=== PATIENT | male | born 1985 | race Caucasian/White ===

== ENCOUNTER 2017-08-26 13:13 | Emergency (ER) | payer OTHER ==
[2017-08-26 13:27] VITALS: BMI 21.5
[2017-08-26 13:31] VITALS: RESP 18
[2017-08-26] MEDS ORDERED: Aspirin 325 mg EC Tablets PO STA (13:52)
--- NOTE | 2017-08-26 14:10 | RAD ---
PROCEDURE: CHEST RADIOGRAPH, 1 VIEW HISTORY: chest pain COMPARISON: None available. FINDINGS: LUNGS: Clear. PLEURA: No pneumothorax or pleural fluid seen. CARDIOVASCULAR: Normal. OSSEOUS STRUCTURES: No significant abnormalities. VISUALIZED UPPER ABDOMEN: Normal. OTHER FINDINGS: None. IMPRESSION: No active disease.
[2017-08-26 14:26] LABS: BASO # 0.1 K/uL (0.0-0.2); EOS # 0.3 K/uL (0.0-0.7); EOS % 4.4 % (0.0-4.0); LYMPH # 1.8 K/uL (1.0-4.3); LYMPH % 28.2 % (20.0-40.0); MEAN CELL VOLUME 82.2 fL (80.0-94.0); MEAN CORPUSCULAR HEMOGLOBIN 28.6 pg (27.0-31.0); MEAN CORPUSCULAR HGB CONC 34.8 g/dL (33.0-37.0); MEAN PLATELET VOLUME 6.6 fL (7.2-11.7); MONO # 0.5 K/uL (0.0-0.8); MONO % 7.7 % (0.0-10.0); NEUT # 3.7 K/uL (1.8-7.0); NEUT % 58.7 % (50.0-75.0); RBC 5.24 Mil/uL (4.40-5.90); RED CELL DISTRIBUTION WIDTH 13.5 % (11.5-14.5); WHITE BLOOD COUNT 6.3 K/uL (4.8-10.8)
[2017-08-26 14:39] LABS: ALB/GLOB RATIO 1.4 (1.0-2.1); ALBUMIN 4.7 g/dL (3.5-5.0); CALCIUM 9.4 mg/dl (8.6-10.4); GFR AFRICAN-AMERICAN > 60; GFR NON-AFRICAN AMERICAN > 60
[2017-08-26 14:40] LABS: ALT/SGPT 53 U/L (21-72); AST/SGOT 42 U/L (17-59); BLOOD UREA NITROGEN 16 mg/dL (9-20)
--- NOTE | 2017-08-26 14:59 | C.PDOC ---
History Of Present Illness 31-year-old male, presents to the emergency department with complaints of sudden onset left sided chest pain, yesterday.Pain described as a heavy pressure. reports patient appeared to be sweaty and uncomfortable. He notes symptoms lasted fifteen minutes and resolved spontaneously. Patient states he slept well, and on his way to school this morning, he developed sudden onset light headedness, dizziness, nausea and diaphoresis, prompting visit. He had no associated chest pain today. Patient denies any drugs or smoking. Both parents with a Hx of diabetes. No other complaints at this time. Time Seen by Provider: 08/26/17 13:44 Chief Complaint (Nursing): Dizziness/Lightheaded History Per: Patient History/Exam Limitations: no limitations Current Symptoms Are (Timing): Still Present Past Medical History Reviewed: Historical Data, Nursing Documentation, Vital Signs Vital Signs: Last Vital Signs Temp 98.3 F 08/26/17 13:27 Pulse 92 H 08/26/17 13:27 Resp 18 08/26/17 13:27 BP 139/75 08/26/17 13:27 Pulse Ox 100 08/26/17 15:18 Family History: States: No Known Family Hx - Social History Hx Alcohol Use: No Hx Substance Use: No Review Of Systems Except As Marked, All Systems Reviewed And Found Negative. Constitutional: Positive for: Sweats. Negative for: Fever, Chills Cardiovascular: Positive for: Chest Pain Respiratory: Negative for: Cough, Shortness of Breath Gastrointestinal: Positive for: Nausea Musculoskeletal: Negative for: Back Pain Skin: Negative for: Rash Neurological: Positive for: Dizziness. Negative for: Weakness, Numbness, Headache Physical Exam - Physical Exam Appears: Non-toxic, No Acute Distress Skin: Normal Color, Warm, Dry, No Rash Head: Atraumatic, Normacephalic Eye(s): bilateral: Normal Inspection, PERRL, EOMI Nose: Normal Oral Mucosa: Moist Lips: Normal Appearing Neck: Normal ROM Chest: Symmetrical Cardiovascular: Rhythm Regular, No Murmur Respiratory: Normal Breath Sounds, No Accessory Muscle Use Gastrointestinal/Abdominal: Soft, No Tenderness Back: Normal Inspection Extremity: Normal ROM, No Deformity, No Swelling Neurological/Psych: Oriented x3, Normal Speech ED Course And Treatment - Laboratory Results Result Diagrams: 08/26/17 14:15 08/26/17 14:15 Lab Interpretation: Normal ECG: Interpreted By Me ECG Rhythm: Sinus Rhythm ECG Interpretation: Normal O2 Sat by Pulse Oximetry: 100 (RA) Pulse Ox Interpretation: Normal - Radiology CXR: Interpreted by Me CXR Interpretation: Yes: No Acute Disease Reevaluation Time: 15:20 Reassessment Condition: Improved (Patient remains asymptomatic in ED.) Medical Decision Making Medical Decision Making: Plan: * EKG * Bloodwork * Chest X-Ray * Aspirin * UA * Reassess and Disposition Disposition Counseled Patient/Family Regarding: Studies Performed, Diagnosis, Need For Followup - Disposition Referrals: [facility] [Outside] Disposition: HOME/ ROUTINE Disposition Time: 15:21 Condition: STABLE Instructions: Chest Pain That Is Not Caused by the Heart (DC), Dizziness, Nonvertigo, (DC) Forms: [employer] (Croatian) - Clinical Impression Clinical Impression: Chest discomfort, Dizziness - Scribe Statement The provider has reviewed the documentation as recorded by the Scribe (Kelley Forman) All medical record entries made by the Scribe were at my direction and personally dictated by me. I have reviewed the chart and agree that the record accurately reflects my personal performance of the history, physical exam, medical decision making, and the department course for this patient. I have also personally directed, reviewed, and agree with the discharge instructions and disposition.
[2017-08-26 15:33] VITALS: BP 109/75; PULSE 64; TEMP 98.7; O2SAT 97
== END 2017-08-26 15:33 | disposition home or self-care (01) ==
LOC: C.ER 13:13
DX: R07.89 Other chest pain (principal); R42 Dizziness and giddiness